=== PATIENT | female | born 1985 | race Hispanic/Latino ===

== ENCOUNTER 2019-05-27 21:06 | Emergency (ER) | payer OTHER ==
[2019-05-27] MEDS ORDERED: ACETAMINOPHEN EXTRA STRENGTH 500 MG TABLET ONE (22:41)
[2019-05-27 22:42] LABS: RAPID GROUP A STREP NEGATIVE (NEGATIVE)
[2019-05-27 22:52] LABS: APPEARANCE,URINE Clear (CLEAR); BILIRUBIN,URINE Negative (NEGATIVE); COLOR,URINE Dark Yellow (YELLOW); GLUCOSE, URINE (UA) 250 mg/dL (NEGATIVE); KETONES,URINE 40 mg/dL (NEGATIVE); LEUKOCYTE ESTERASE ,URINE Negative (NEGATIVE); NITRATE,URINE Positive (NEGATIVE); OCCULT BLOOD,URINE Moderate (NEGATIVE); PROTEIN,URINE POS 1+ mg/dL (NEGATIVE); UROBILINOGEN,URINE 0.2 mg/dL (0.2-1.0)
[2019-05-27 22:54] LABS: HCG,QUAL RESULT POSITIVE (NEGATIVE)
[2019-05-27 23:07] LABS: BACTERIA,URINE Many /HPF (None Seen); MUCUS,URINE Few LPF (None Seen); RBC,URINE 0-1 /HPF (0-1); TRANSITIONAL EPI CELLS,URINE Few /HPF (None Seen)
[2019-05-27] MEDS ORDERED: LIDOCAINE HCL-MPF 1% 2ML VIAL ONE ×2 (23:38→23:42)
[2019-05-27] MEDS ORDERED: CEFTRIAXONE SODIUM 1 GM ONE (23:38)
[2019-05-27] MEDS ORDERED: OSELTAMIVIR PHOSPHATE 75 MG CAP ONE (23:39)
[2019-05-27] MEDS ORDERED: ONDANSETRON ODT 4 MG TAB ONE (23:40)
== END 2019-05-28 00:03 | disposition home or self-care (01) ==
LOC: EDH 21:06
DX: J11.1 Influenza due to unidentified influenza virus with other respiratory manifestations (principal); N39.0 Urinary tract infection, site not specified
CPT/HCPCS: 81001; 81025; 87804 ×2; 87880; 99283; J0696; J3490 ×2